=== PATIENT | male | born 1950 | race Caucasian/White ===

== ENCOUNTER → 2021-04-09 | Outpatient (CLI) | payer MEDICARE ==
--- NOTE | 2021-04-09 11:54 | Diagnostic Imaging Report ---
INDICATION: Pain EXAMINATION: Right elbow 04/09/2021 FINDINGS: 3 views of the elbow. FINDINGS: There is no evidence for an acute fracture or dislocation. The joint spaces are well maintained. There is no significant soft tissue swelling. IMPRESSION: No acute process. Dictated by: Dictated on workstation # [id number]
--- NOTE | 2021-04-09 13:12 | Diagnostic Imaging Report ---
INDICATION: Shoulder pain. COMPARISON: None. FINDINGS: 3 views of the right shoulder were obtained. There is no fracture, dislocation, or other acute bony abnormality identified. The soft tissues appear unremarkable. No radiopaque foreign bodies identified. The visualized portions of the right lung are clear. IMPRESSION: No acute fractures or dislocations of the right shoulder. Dictated by: Dictated on workstation # [id number]
== END ==
LOC: RAD FS 11:08
PROVIDERS: ATTEND Nurse Practitioner
DX: M25.511 Pain in right shoulder (principal); M25.521 Pain in right elbow
CPT/HCPCS: 73030; 73080